=== PATIENT | female | born 1960 | race Caucasian/White ===

== ENCOUNTER 2024-06-08 05:44 | Day surgery (SDC) | payer BC ==
[2024-06-07 14:33] VITALS: BMI 28.2
[2024-06-08] MEDS ORDERED: PROPOFOL 20 ML ONE ×2 (06:46→07:21)
[2024-06-08] MEDS ORDERED: fentaNYL 50 mcg/mL 1 mL Vial ONE ×2 (06:47→08:09)
[2024-06-08] MEDS ORDERED: Lidocaine 1% PF 5 ML VIAL ONE (06:48)
[2024-06-08] MEDS ORDERED: Rocuronium Bromide 10 MG/ML (10ML VIAL) ONE (06:49)
[2024-06-08] MEDS ORDERED: SUGAMMADEX SODIUM 200 MG/2 ML VIAL ONE ×2 (06:50→07:43)
[2024-06-08] MEDS ORDERED: Dexamethasone 4 mg/ml Vial ONE (06:50)
[2024-06-08] MEDS ORDERED: Ondansetron PF 4 MG/2 ML Vial ONE (06:50)
[2024-06-08] MEDS ORDERED: EPINEPHrine 1 MG/ML VIAL ONE (06:54)
[2024-06-08] MEDS ORDERED: Lidocaine 1% (PF) 30 ML VIAL ONE (06:54)
[2024-06-08] MEDS ORDERED: HYDROcodone/Acetaminophen 5/325 mg Tablet ONE (08:36)
== END 2024-06-08 09:12 | disposition home or self-care (01) ==
LOC: CSHSDC 05:44
PROVIDERS: ATTEND Otolaryngology Otolaryngic Allergy
PROC: 0CB7XZZ Excision of Tongue, External Approach (ICD-10-PCS; principal; 2024-06-08)
DX: K12.30 Oral mucositis (ulcerative), unspecified (principal); I10 Essential (primary) hypertension; E03.9 Hypothyroidism, unspecified; F32.A Depression, unspecified; F41.9 Anxiety disorder, unspecified; H26.9 Unspecified cataract; J45.909 Unspecified asthma, uncomplicated; M54.9 Dorsalgia, unspecified; G89.29 Other chronic pain; Z90.49 Acquired absence of other specified parts of digestive tract; Z90.710 Acquired absence of both cervix and uterus; Z98.890 Other specified postprocedural states; Z88.5 Allergy status to narcotic agent; Z79.899 Other long term (current) drug therapy
CPT/HCPCS: 88305; J0171; J1100; J2405; J2704; J3010